=== PATIENT | female | born 1995 | race African-American/Black ===

== ENCOUNTER 2018-02-23 20:19 | Emergency (ER) | payer OTHER, BC ==
[~2018-02-23] VITALS: Ht 157.5 cm; Wt 108.9 kg
[~2018-02-23 20:19] MED LIST: ALDACTONE25 MG PO; IBUPROFEN 800800 MG PO; LOVASTATIN 20 M20 MG; METFORMIN HCL500 MG PO; PROVERA10 MG; PROVERA2.5 MG; VENTOLIN17 GM; WELLBUTRIN 100100 MG PO; ZOFRAN4 MG PO; ZOLOFT25 MG PO
[2018-02-23] MEDS ORDERED: ALDACTONE50 MG (20:33)
[2018-02-23 21:33] VITALS: BP 161/99
== END 2018-02-23 21:34 | disposition home or self-care (01) ==
LOC: M.ERS 20:19
DX: R20.0 Anesthesia of skin (principal); R20.2 Paresthesia of skin; F41.9 Anxiety disorder, unspecified; F32.9 Major depressive disorder, single episode, unspecified; K58.9 Irritable bowel syndrome, unspecified; Z88.0 Allergy status to penicillin

== ENCOUNTER 2018-05-05 19:57 | Emergency (ER) | payer OTHER ==
[~2018-05-05] VITALS: Ht 160 cm; Wt 106.1 kg
[~2018-05-05 19:57] MED LIST changes: +ALDACTONE50 MG
[2018-05-05 21:11] LABS: URINE BILIRUBIN NEGATIVE (Negative); URINE BLOOD 3+ (Negative); URINE CLARITY CLEAR; URINE COLOR YELLOW; URINE GLUCOSE-RANDOM NEGATIVE (Negative); URINE KETONES NEGATIVE (Negative); URINE LEUKOCYTES-REFLEX NEGATIVE (Negative); URINE NITRITE-REFLEX NEGATIVE (Negative); URINE PROTEIN NEGATIVE (Negative); URINE UROBILINOGEN 0.2 E.U./dl (0.2-1.0)
[2018-05-05 21:17] LABS: MUCUS 4-6 Moderate strn/LPF (None Seen); SQUAMOUS >10 Many /LPF (0-3)
[2018-05-05 21:18] LABS: URINE WBC-REFLEX 0-5 Rare /HPF (0-5)
[2018-05-05 21:19] LABS: BACTERIA-REFLEX 1-9 Few /HPF (None Seen); CASTS None Seen /LPF (None Seen); CRYSTALS None Seen /LPF (None Seen)
[2018-05-05] MEDS ORDERED: OMEPRAZOLE 20 M20 M1 PO (21:37)
[2018-05-05 21:56] VITALS: BP 149/99
--- NOTE | 2018-05-08 14:53 | EKG ---
[place] [address] ELECTROCARDIOGRAM REPORT Name: VIRY ALFORD Room: [facility]#: [id number] Admission: 05/05/18 Attend Phys: Discharge: 05/05/18 Date of : [birth year] Report #: [id number] THIS REPORT FOR: //name// [facility] ED Test Date: 2018-05-05 Test Time: 20:58:56 Pat Name: VIRY ALFORD Department: Room: Gender: F [employer]: CEDRIC : 1995 Requested By: Mitch Ramirez Order Number: [id number] MD: Aly Carmona Measurements Intervals Alfred Rate: 81 P: 35 WY: 150 QRS: 64 QRSD: 93 T: 11 QT: 375 QTc: 436 Interpretive Statements Sinus rhythm Compared to ECG 09/13/2016 02:19:51 No significant changes Electronically Signed On 05-08-2018 14:53:00 CDT by Aly Carmona [email or web address] <ELECTRONICALLY SIGNED> By: Aly Carmona MD, [facility] 05/08/18 1453 57 57 Aly Carmona MD, FACC /EPI
== END 2018-05-05 21:57 | disposition home or self-care (01) ==
LOC: M.ERS 19:57
PROVIDERS: Nurse Practitioner Psychiatric/Mental Health
DX: K21.9 Gastro-esophageal reflux disease without esophagitis (principal); N93.8 Other specified abnormal uterine and vaginal bleeding; F41.9 Anxiety disorder, unspecified; F32.9 Major depressive disorder, single episode, unspecified; Z88.0 Allergy status to penicillin

== ENCOUNTER 2019-01-24 19:44 | Emergency (ER) | payer OTHER ==
[~2019-01-24] VITALS: Ht 157.5 cm; Wt 108.9 kg
[~2019-01-24 19:44] MED LIST changes: +OMEPRAZOLE 20 M20 M1 PO
[2019-01-24 20:29] LABS: URINE BILIRUBIN NEGATIVE (Negative); URINE BLOOD NEGATIVE (Negative); URINE CLARITY CLEAR; URINE COLOR YELLOW; URINE GLUCOSE-RANDOM NEGATIVE (Negative); URINE KETONES NEGATIVE (Negative); URINE LEUKOCYTES-REFLEX NEGATIVE (Negative); URINE NITRITE-REFLEX NEGATIVE (Negative); URINE PROTEIN TRACE (Negative); URINE UROBILINOGEN 0.2 E.U./dl (0.2-1.0)
[2019-01-24 20:38] LABS: AMP/METHAMP Negative (Negative); BARBITURATES Negative (Negative); BENZODIAZEPINES Negative (Negative); COCAINE Negative (Negative); METHADONE Negative (Negative); OPIATES Negative (Negative); PCP Negative (Negative); THC Negative (Negative)
[2019-01-24 20:56] LABS: HEMATOCRIT 42.7 % (37.0-47.0); HEMOGLOBIN 14.1 gm/dL (12.0-15.0); MCH 27.2 pg (26.0-34.0); MCV 82.4 fL (80.0-100.0); MPV 9.3 fl. (7.2-11.1); NUCLEATED RBCS 0 /100WBC; PLATELET COUNT* 252 thou/uL (150-400); RBC 5.19 mil/uL (4.20-5.00); RDW-CV 14.2 % (10.5-14.5); WBC 7.5 thou/uL (4.0-11.0)
[2019-01-24 21:03] LABS: CALCIUM 8.5 mg/dL (8.5-10.1); CREATININE 0.7 mg/dL (0.6-1.3); POTASSIUM 4.2 mmol/L (3.5-5.1)
[2019-01-24 21:07] LABS: ALBUMIN 4.1 g/dL (3.4-5.0); TOTAL BILIRUBIN 0.5 mg/dL (<0.1-1.0); TOTAL PROTEIN 8.1 g/dL (6.4-8.2)
[2019-01-24 21:45] LABS: ABSOLUTE EOSINOPHILS 0.1 thou/uL (0.0-0.7); ABSOLUTE LYMPHOCYTES 0.8 thou/uL (0.8-5.3); ABSOLUTE MONOCYTES 0.3 thou/uL (0.0-1.2); ABSOLUTE NEUTROPHILS 6.3 thou/uL (1.6-8.1)
[2019-01-24 21:46] LABS: PLATELET ESTIMATE ADEQUATE
[2019-01-24] MEDS ORDERED: ZOFRAN ODT4 MG PO (21:51)
[2019-01-24 22:05] VITALS: BP 134/72
== END 2019-01-24 22:05 | disposition home or self-care (01) ==
LOC: M.ERS 19:44
PROVIDERS: Emergency Medicine
DX: R11.2 Nausea with vomiting, unspecified (principal); R19.7 Diarrhea, unspecified; F41.9 Anxiety disorder, unspecified; F32.9 Major depressive disorder, single episode, unspecified; K58.9 Irritable bowel syndrome, unspecified; Z88.0 Allergy status to penicillin